=== PATIENT | male | born 1980 | race African-American/Black ===

== ENCOUNTER 2018-07-29 11:17 | Emergency (ER) | payer MEDICARE ==
[~2018-07-29] VITALS: Ht 182.9 cm; Wt 110.0 kg
[2018-07-29] MEDS ORDERED: SODIUM CHLORIDE 0.9% 1,000 ML IV ONE (11:35)
[2018-07-29] MEDS ORDERED: TETANUS, DIPHTHERIA, PERTUSSIS VAC/PF 0.5ML (>7YR OLD) IM ONE (11:45)
[2018-07-29] MEDS ORDERED: BACITRACIN ZINC OINT UDPKT TOP ONE (11:45)
[2018-07-29] MEDS ORDERED: LEVETIRACETAM 500MG PREMIX 100 ML IV ONE (11:45)
[2018-07-29 13:18] LABS: BASOPHILS % 0.4 % (0.0-2.0); EOSINOPHILS % 0.6 % (0.0-5.0); LYMPHOCYTES % 21.7 % (20.0-50.0); MEAN CORPUSCULAR HEMOGLOBIN 25.7 pg (28.0-32.0); MEAN CORPUSCULAR VOLUME 77.4 fL (80.0-94.0); MEAN PLATELET VOLUME 7.6 fl (7.4-10.4); NEUTROPHILS % 66.3 % (40.0-76.0); PLATELET 178 x1000/uL (130-400); RED BLOOD CELL COUNT 5.43 mill/uL (4.7-6.1); RED CELL DISTRIBUTION WIDTH 15.3 % (11.6-14.6)
[2018-07-29 13:23] LABS: CHLORIDE 107 mEq/L (98-107)
[2018-07-29 13:28] LABS: ETHANOL BLOOD < 10 mg/dL
[2018-07-29 13:35] LABS: CARBAMAZEPINE < 0.5 ug/mL (4-12); PHENOBARBITAL < 2.1 ug/mL (15.0-40.0)
[2018-07-29 13:45] LABS: VALPROIC ACID < 3.0 ug/mL (50-100)
[2018-07-29] MEDS ORDERED: PHENYTOIN SODIUM EXTENDED 100MG CAPSULE PO ONE (15:00)
[2018-07-29] MEDS ORDERED: PHENYTOIN 100 MG/4 ML UDC PO NR (15:45)
[2018-07-29 16:30] VITALS: BP 128/68
== END 2018-07-29 16:46 | disposition home or self-care (01) ==
LOC: ER 11:17
DX: G40.909 Epilepsy, unspecified, not intractable, without status epilepticus (principal); S60.512A Abrasion of left hand, initial encounter; S60.511A Abrasion of right hand, initial encounter; Z91.14 Patient's other noncompliance with medication regimen; X58.XXXA Exposure to other specified factors, initial encounter; Y93.89 Activity, other specified; Y92.488 Other paved roadways as the place of occurrence of the external cause
CPT/HCPCS: 36415; 73130; 80053; 80156; 80165; 80184; 80185; 80320; 85025; 90471; 90715; 93005; 96365; 99284; A4217; J1953; J7030; G0480

== ENCOUNTER 2021-12-05 14:51 | Emergency (ER) | payer MEDICARE, MEDICAID ==
[~2021-12-05] VITALS: Ht 195.6 cm; Wt 150.0 kg
[2021-12-05] MEDS ORDERED: ACETAMINOPHEN 325MG TABLET PO ONE (21:15)
[2021-12-05 21:47] LABS: HEMOGLOBIN. 14.3 g/dL (14.0-18.0); MEAN CORPUSCULAR VOLUME 76.9 fL (80.0-94.0); MEAN PLATELET VOLUME 7.9 fl (7.4-10.4); PLATELET 167 x1000/uL (130-400); RED BLOOD CELL COUNT 5.72 mill/uL (4.7-6.1); RED CELL DISTRIBUTION WIDTH 15.5 % (11.6-14.6)
[2021-12-05 21:56] LABS: CHLORIDE 103 mEq/L (98-107)
[2021-12-05 22:33] LABS: PLATELET ESTIMATE NORMAL
[2021-12-06 00:09] VITALS: BP 122/78
== END 2021-12-06 00:09 | disposition home or self-care (01) ==
LOC: ER 15:10
DX: M25.572 Pain in left ankle and joints of left foot (principal); R56.9 Unspecified convulsions
CPT/HCPCS: 36415; 73590; 73610; 73630; 80053; 85025; 93971; 99285

== ENCOUNTER 2022-06-15 10:57 | Emergency (ER) | payer MEDICARE, MEDICAID ==
[~2022-06-15] VITALS: Ht 193 cm; Wt 136.0 kg
[2022-06-15] MEDS ORDERED: LEVETIRACETAM 1000MG PREMIX 100 ML IV ONE (11:00)
[2022-06-15 12:21] LABS: BASOPHILS % 0.6 % (0.0-2.0); EOSINOPHILS % 1.2 % (0.0-5.0); HEMATOCRIT. 43.8 % (42.0-52.0); HEMOGLOBIN. 14.4 g/dL (14.0-18.0); LYMPHOCYTES % 37.9 % (20.0-50.0); MEAN CORPUSCULAR HEMOGLOBIN 25.4 pg (28.0-32.0); MEAN CORPUSCULAR VOLUME 77.4 fL (80.0-94.0); NEUTROPHILS % 49.3 % (40.0-76.0); PLATELET 207 x1000/uL (130-400); RED BLOOD CELL COUNT 5.66 mill/uL (4.7-6.1)
[2022-06-15 12:27] VITALS: BP 155/71
[2022-06-15 12:33] LABS: CHLORIDE 105 mEq/L (98-107)
[2022-06-15] MEDS ORDERED: KEPP500 PO (12:56)
[2022-06-15 12:59] LABS: ETHANOL BLOOD < 10 mg/dL
== END 2022-06-15 14:10 | disposition home or self-care (01) ==
LOC: ER 10:57
DX: R56.9 Unspecified convulsions (principal); R62.50 Unspecified lack of expected normal physiological development in childhood
CPT/HCPCS: 36415; 80053; 80165; 80185; 80320; 85025; 96365; 96366; 99284; J1953; G0480

== ENCOUNTER 2023-12-23 21:02 | Emergency (ER) | payer BC, MEDICAID ==
[~2023-12-23] VITALS: Ht 195.6 cm; Wt 143.0 kg
[~2023-12-23 21:02] MED LIST: KEPP500 PO
[2023-12-23 21:07] VITALS: BP 145/100; RESP 18; TEMP 98.2; O2SAT 100
[2023-12-23 21:08] VITALS: PULSE 105
[2023-12-23 22:48] LABS: HEMATOCRIT 41.1 % (42.0-52.0); HEMOGLOBIN 13.4 g/dL (14.0-18.0); MEAN CORPUSCULAR HEMOGLOBIN 25.2 pg (28.0-32.0); MEAN CORPUSCULAR HGB CONC 32.5 g/dL (31.0-37.0); MEAN CORPUSCULAR VOLUME 77.6 fL (80.0-94.0); PLATELET 183 x1000/uL (130-400); RED CELL DISTRIBUTION WIDTH 15.8 % (11.6-14.6); WHITE BLOOD COUNT 5.8 x1000/uL (4.5-11.0)
[2023-12-23 22:53] LABS: CHLORIDE 107 mEq/L (98-107); POTASSIUM 4.1 mEq/L (3.5-5.1); SODIUM 139 mEq/L (136-145)
[2023-12-23 22:54] LABS: CALCIUM 9.2 mg/dL (8.7-10.4); CARBON DIOXIDE 25 mEq/L (21-32)
[2023-12-23 22:59] LABS: CREATININE 1.3 mg/dL (0.6-1.3); GLUCOSE 89 mg/dL (70-105); UREA NITROGEN BLOOD 22 mg/dL (9-23)
== END 2023-12-23 23:52 | disposition home or self-care (01) ==
LOC: ER 21:02
DX: R60.0 Localized edema (principal); R56.9 Unspecified convulsions
CPT/HCPCS: 36415; 80048; 85027; 99283

== ENCOUNTER 2025-03-19 17:52 | Emergency (ER) | payer BC, MEDICAID ==
[~2025-03-19] VITALS: Ht 193 cm; Wt 136.0 kg
[2025-03-19 17:54] VITALS: O2SAT 95
[2025-03-19] MEDS: LEVETIRACETAM 1000MG PREMIX 100 ML IV ONE (18:21)
[2025-03-19] MEDS: SODIUM CHLORIDE 0.9% 1,000 ML IV ONE (18:21)
[2025-03-19 18:41] LABS: BASOPHILS % 0.7 % (0.0-2.0); EOSINOPHILS % 1.1 % (0.0-5.0); HEMATOCRIT. 43.9 % (42.0-52.0); HEMOGLOBIN. 13.9 g/dL (14.0-18.0); LYMPHOCYTES % 53.3 % (20.0-50.0); MEAN PLATELET VOLUME 7.8 fl (7.4-10.4); MONOCYTES % 8.6 % (2.0-8.0); NEUTROPHILS % 36.3 % (40.0-76.0); PLATELET 243 x1000/uL (130-400); RED BLOOD CELL COUNT 5.59 mill/uL (4.7-6.1); RED CELL DISTRIBUTION WIDTH 15.6 % (11.6-14.6)
[2025-03-19 18:57] LABS: CREATININE 1.3 mg/dL (0.6-1.3); UREA NITROGEN BLOOD 11 mg/dL (9-23)
[2025-03-19 18:58] LABS: TROPONIN I HIGH SENSITIVITY < 4 ng/L (3.0-53)
[2025-03-19 18:59] LABS: ASPARTATE AMINOTRANSFERASE 21 IU/L (<34); BILIRUBIN DIRECT 0.1 mg/dL (<=3.0)
[2025-03-19] MEDS: LORAZEPAM 2MG/ML UD SYRINGE IV NR (18:59)
[2025-03-19 19:00] LABS: BILIRUBIN TOTAL 0.5 mg/dL (0.1-1.0); PROTEIN TOTAL 7.7 g/dL (6.0-8.3)
[2025-03-19] MEDS ORDERED: KEPP500 MT (19:43)
[2025-03-19 19:55] VITALS: BP 135/88; PULSE 96; RESP 20; TEMP 37.2; O2SAT 98
[2025-03-19 20:08] LABS: *AMPHETAMINES SCREEN URINE NEGATIVE (NEGATIVE); *BARBITURATES SCREEN URINE NEGATIVE (NEGATIVE); *BENZODIAZEPINES SCREEN URINE NEGATIVE (NEGATIVE); *COCAINE SCREEN URINE NEGATIVE (NEGATIVE); METHADONE URINE SCREEN NEGATIVE (NEGATIVE)
[2025-03-19 20:09] LABS: CANNABINOID URINE SCREEN NEGATIVE (NEGATIVE); ECSTASY MDMA SCREEN URINE NEGATIVE (NEGATIVE); OPIATES URINE SCREEN NEGATIVE (NEGATIVE); PHENCYCLIDINE URINE SCREEN NEGATIVE (NEGATIVE)
[2025-03-19 20:17] LABS: CLARITY URINE CLEAR (CLEAR); COLOR URINE YELLOW (YELLOW); GLUCOSE URINE NEGATIVE (NEGATIVE); KETONES URINE NEGATIVE (NEGATIVE); LEUKOCYTE ESTERASE URINE NEGATIVE (NEGATIVE); NITRITE URINE NEGATIVE (NEGATIVE); OCCULT BLOOD URINE NEGATIVE (NEGATIVE); PH URINE 5.5 (4.5-8.0); PROTEIN URINE 2+ (NEGATIVE); SPECIFIC GRAVITY URINE 1.011 (1.005-1.030); UROBILINOGEN URINE 0.2 E.U./dL (0.2-1.0)
[2025-03-19 20:45] LABS: RBC URINE NONE SEEN /hpf (0-2); WBC URINE 0-2 /hpf (0-2)
[2025-03-19 20:47] LABS: BACTERIA URINE NONE SEEN; HYALINE CASTS URINE 0-5 /lpf
== END 2025-03-19 20:10 | disposition home or self-care (01) ==
LOC: ER 17:52 → CMPBEDREQ 03-20 07:27
DX: R56.9 Unspecified convulsions (principal); R06.02 Shortness of breath; Z79.899 Other long term (current) drug therapy
CPT/HCPCS: 80076; 80305; 80048; 81003; 80320; 83880; 83605; 83735; 85025; 84484; 36415; 71045; 70450; 93005; 96365; 99285; J1953; J7030; J2060; G0480

== ENCOUNTER 2025-05-02 13:13 | Emergency (ER) | payer BC, MEDICAID ==
[~2025-05-02] VITALS: Ht 193 cm; Wt 123.0 kg
[~2025-05-02 13:13] MED LIST changes: +KEPP500 MT
[2025-05-02 13:14] VITALS: O2SAT 99
[2025-05-02] MEDS: LEVETIRACETAM 1000MG PREMIX 100 ML IV ONE (14:05)
[2025-05-02 14:25] LABS: BASOPHILS % 0.6 % (0.0-2.0); EOSINOPHILS % 0.7 % (0.0-5.0); HEMATOCRIT. 44.2 % (42.0-52.0); HEMOGLOBIN. 14.2 g/dL (14.0-18.0); LYMPHOCYTES % 34.0 % (20.0-50.0); MEAN PLATELET VOLUME 7.9 fl (7.4-10.4); MONOCYTES % 10.1 % (2.0-8.0); NEUTROPHILS % 54.6 % (40.0-76.0); PLATELET 204 x1000/uL (130-400); RED BLOOD CELL COUNT 5.74 mill/uL (4.7-6.1); RED CELL DISTRIBUTION WIDTH 15.6 % (11.6-14.6)
[2025-05-02 14:35] LABS: CREATININE 1.2 mg/dL (0.6-1.3); ETHANOL BLOOD < 10 mg/dL (<10); UREA NITROGEN BLOOD 13 mg/dL (9-23)
[2025-05-02] MEDS ORDERED: KEPP500 MT (14:45)
[2025-05-02 15:24] LABS: CLARITY URINE CLEAR (CLEAR); COLOR URINE YELLOW (YELLOW); GLUCOSE URINE NEGATIVE (NEGATIVE); KETONES URINE TRACE (NEGATIVE); LEUKOCYTE ESTERASE URINE NEGATIVE (NEGATIVE); NITRITE URINE NEGATIVE (NEGATIVE); OCCULT BLOOD URINE TRACE (NEGATIVE); PH URINE 5.5 (4.5-8.0); PROTEIN URINE 2+ (NEGATIVE); SPECIFIC GRAVITY URINE 1.020 (1.005-1.030); UROBILINOGEN URINE 0.2 E.U./dL (0.2-1.0)
[2025-05-02 15:34] LABS: *AMPHETAMINES SCREEN URINE NEGATIVE (NEGATIVE); *BARBITURATES SCREEN URINE NEGATIVE (NEGATIVE); *BENZODIAZEPINES SCREEN URINE NEGATIVE (NEGATIVE); *COCAINE SCREEN URINE NEGATIVE (NEGATIVE)
[2025-05-02 15:35] LABS: CANNABINOID URINE SCREEN NEGATIVE (NEGATIVE); ECSTASY MDMA SCREEN URINE NEGATIVE (NEGATIVE); METHADONE URINE SCREEN NEGATIVE (NEGATIVE); OPIATES URINE SCREEN NEGATIVE (NEGATIVE); PHENCYCLIDINE URINE SCREEN NEGATIVE (NEGATIVE)
[2025-05-02 16:03] LABS: BACTERIA URINE NONE SEEN; RBC URINE 0-2 /hpf (0-2); SQUAMOUS EPITHELIAL CELL URINE RARE /lpf (RARE/1+); WBC URINE NONE SEEN /hpf (0-2)
[2025-05-02 16:23] VITALS: BP 146/94; PULSE 90; RESP 16; TEMP 37.2; O2SAT 100
== END 2025-05-02 16:27 | disposition home or self-care (01) ==
LOC: ER 13:13
DX: R56.9 Unspecified convulsions (principal); Z79.899 Other long term (current) drug therapy
CPT/HCPCS: 80305; 80048; 81003; 80320; 85025; 36415; 93005; 96365; 99284; J1953; G0480